=== PATIENT | female | born 1980 | race African-American/Black ===

== ENCOUNTER 2017-09-05 12:18 | Emergency (ER) | payer OTHER ==
[~2017-09-05] VITALS: Ht 162.6 cm; Wt 59.0 kg
--- NOTE | ~2017-09-05 | EKG ---
[place] [address] [facility] [place] [address] ELECTROCARDIOGRAM REPORT Name: BRIRADHABRYAN Caraballo Room #: DEP [facility]#: [id number] Admission: 09/05/17 Attend Phys: Discharge: 09/05/17 Date of : 82 Report #: [id number] THIS REPORT FOR: //name// 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
[~2017-09-05 12:18] MED LIST: ACYCLOVIR 400400 MG PO; FLAGYL500 MG PO; NAPROSYN500 MG PO; NORCO 5-325 TA1 EACH PO; NORFLEX100 MG PO; PHENERGAN 25 MG25 M1 PO; VITAFOL-OB+DHA1 EACH PO
[2017-09-05 12:44] LABS: URINE BILIRUBIN NEGATIVE (Negative); URINE BLOOD NEGATIVE (Negative); URINE CLARITY CLEAR; URINE COLOR YELLOW; URINE GLUCOSE-RANDOM* NEGATIVE (Negative); URINE KETONES NEGATIVE (Negative); URINE LEUKOCYTES-REFLEX NEGATIVE (Negative); URINE NITRITE-REFLEX NEGATIVE (Negative); URINE PROTEIN (DIPSTICK) NEGATIVE (Negative); URINE SPECIFIC GRAVITY >= 1.030 (1.005-1.035); URINE UROBILINOGEN 0.2 E.U./dl (0.2-1.0)
[2017-09-05 13:09] LABS: BASOPHILS 1.2 % (0.0-2.0); EOSINOPHILS 1.9 % (0.0-3.0); HEMATOCRIT 33.4 % (37.0-47.0); HEMOGLOBIN 10.9 gm/dL (12.0-15.0); LYMPHOCYTES 34.7 % (24.0-44.0); MCH 26.8 pg (26.0-34.0); MCHC 32.6 g/dL (28.0-37.0); MCV 82.4 fL (80.0-100.0); MONOCYTES 9.4 % (1.0-8.0); PLATELET COUNT 245 thou/uL (150-400); POLYS 52.8 % (36.0-66.0); RBC 4.06 mil/uL (4.20-5.00); RDW 16.2 % (10.5-14.5); WBC 7.5 thou/uL (4.0-11.0)
[2017-09-05 13:17] LABS: CALCIUM 8.9 mg/dL (8.5-10.1); CREATININE 0.9 mg/dL (0.6-1.0); POTASSIUM 3.3 mmol/L (3.5-5.1)
[2017-09-05 13:21] LABS: ALBUMIN 3.5 g/dL (3.4-5.0); TOTAL BILIRUBIN 0.4 mg/dL (<0.1-1.0); TOTAL PROTEIN 7.8 g/dL (6.4-8.2)
[2017-09-05] MEDS ORDERED: ZOFRAN ODT4 MG PO (13:50)
[2017-09-05] MEDS ORDERED: MOBIC15 MG PO (13:50)
[2017-09-05 14:23] VITALS: BP 102/65
== END 2017-09-05 14:22 | disposition home or self-care (01) ==
LOC: ER 12:18
PROVIDERS: Physician Assistant
DX: E87.6 Hypokalemia (principal); R07.9 Chest pain, unspecified; R10.9 Unspecified abdominal pain; R51 Headache

== ENCOUNTER 2018-02-23 16:19 | Emergency (ER) | payer OTHER ==
[~2018-02-23] VITALS: Ht 162.6 cm; Wt 59.0 kg
[~2018-02-23 16:19] MED LIST changes: +CYCLOBENZAPRINE5 MG PO; +MOBIC15 MG PO; +MOBIC7.5 MG PO; +ZOFRAN ODT4 MG PO
[2018-02-23] MEDS ORDERED: IBUPROFEN 400400 M2 PO (16:36)
[2018-02-23] MEDS ORDERED: ZOFRAN4 MG PO (16:36)
[2018-02-23] MEDS ORDERED: PENICILLIN V P500 MG PO (16:36)
[2018-02-23 16:59] VITALS: BP 113/70
== END 2018-02-23 16:58 | disposition home or self-care (01) ==
LOC: ER 16:19
DX: K08.89 Other specified disorders of teeth and supporting structures (principal); R11.2 Nausea with vomiting, unspecified; Z98.890 Other specified postprocedural states

== ENCOUNTER 2018-04-06 15:33 | Emergency (ER) | payer OTHER ==
[~2018-04-06] VITALS: Ht 162.6 cm; Wt 59.0 kg
[~2018-04-06 15:33] MED LIST changes: +IBUPROFEN 400400 M2 PO; +PENICILLIN V P500 MG PO; +ZOFRAN4 MG PO
[2018-04-06 16:26] LABS: ABSOLUTE NEUTROPHILS 3.6 thou/uL (1.4-8.2); BASOPHILS 1.3 % (0.0-2.0); EOSINOPHILS 1.6 % (0.0-3.0); HEMOGLOBIN 12.8 gm/dL (12.0-15.0); LYMPHOCYTES 38.5 % (24.0-44.0); MCHC 33.7 g/dL (28.0-37.0); MCV 83.3 fL (80.0-100.0); MONOCYTES 10.8 % (1.0-8.0); PLATELET COUNT 257 thou/uL (150-400); POLYS 47.8 % (36.0-66.0); RBC 4.56 mil/uL (4.20-5.00); RDW 15.4 % (10.5-14.5); WBC 7.5 thou/uL (4.0-11.0)
[2018-04-06 16:29] LABS: CALCIUM 9.1 mg/dL (8.5-10.1); CREATININE 0.7 mg/dL (0.6-1.0); POTASSIUM 4.1 mmol/L (3.5-5.1)
[2018-04-06 16:36] LABS: ALBUMIN 3.5 g/dL (3.4-5.0); TOTAL BILIRUBIN 0.4 mg/dL (<0.1-1.0); TOTAL PROTEIN 7.8 g/dL (6.4-8.2)
--- NOTE | 2018-04-06 16:36 | EKG ---
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
[2018-04-06 16:42] LABS: URINE BILIRUBIN NEGATIVE (Negative); URINE BLOOD NEGATIVE (Negative); URINE CLARITY CLEAR; URINE COLOR YELLOW; URINE GLUCOSE-RANDOM* NEGATIVE (Negative); URINE KETONES NEGATIVE (Negative); URINE LEUKOCYTES-REFLEX NEGATIVE (Negative); URINE NITRITE-REFLEX NEGATIVE (Negative); URINE PROTEIN (DIPSTICK) NEGATIVE (Negative); URINE SPECIFIC GRAVITY 1.015 (1.005-1.035); URINE UROBILINOGEN 0.2 E.U./dl (0.2-1.0)
[2018-04-06] MEDS ORDERED: MOBIC7.5 MG PO (17:19)
[2018-04-06] MEDS ORDERED: NORFLEX100 MG PO (17:19)
[2018-04-06] MEDS ORDERED: PHENERGAN 25 MG25 M1 PO (17:19)
[2018-04-06] MEDS ORDERED: ANTIVERT25 MG PO (18:11)
[2018-04-06 18:30] VITALS: BP 115/65
== END 2018-04-06 18:31 | disposition home or self-care (01) ==
LOC: ER 15:33
PROVIDERS: Physician Assistant
DX: E86.0 Dehydration (principal); R42 Dizziness and giddiness; M54.5 Low back pain; Z87.442 Personal history of urinary calculi; Z98.890 Other specified postprocedural states

== ENCOUNTER 2020-02-04 09:38 | Emergency (ER) | payer OTHER ==
[~2020-02-04] VITALS: Ht 162.6 cm; Wt 63.5 kg
[~2020-02-04 09:38] MED LIST changes: +ANTIVERT25 MG PO
[2020-02-04 10:14] LABS: HEMOGLOBIN 11.8 gm/dL (12.0-15.0); MCH 27.6 pg (26.0-34.0); MCHC 33.7 g/dL (28.0-37.0); MCV 81.9 fL (80.0-100.0); PLATELET COUNT 305 thou/uL (150-400); RBC 4.28 mil/uL (4.20-5.00); RDW 16.5 % (10.5-14.5); WBC 4.8 thou/uL (4.0-11.0)
[2020-02-04 10:16] LABS: CREATININE 1.1 mg/dL (0.6-1.0); POTASSIUM 4.2 mmol/L (3.5-5.1)
[2020-02-04 10:51] VITALS: BP 109/67
[2020-02-04] MEDS ORDERED: GUAIFEN-CODEINE10 ML PO (10:53)
[2020-02-04 12:14] LABS: ABSOLUTE NEUTROPHILS 2.4 thou/uL (1.4-8.2)
[2020-02-04 12:15] LABS: ANISOCYTOSIS 1+
== END 2020-02-04 11:27 | disposition home or self-care (01) ==
LOC: ER 09:38
PROVIDERS: Emergency Medicine
DX: U07.1 COVID-19 (principal); J06.9 Acute upper respiratory infection, unspecified

== ENCOUNTER 2021-02-10 14:56 | Emergency (ER) | payer OTHER ==
[~2021-02-10] VITALS: Ht 160 cm; Wt 67.1 kg
[~2021-02-10 14:56] MED LIST changes: +GUAIFEN-CODEINE10 ML PO
[2021-02-10 16:23] LABS: URINE BILIRUBIN NEGATIVE (Negative); URINE BLOOD 2+ (Negative); URINE CLARITY CLEAR; URINE COLOR YELLOW; URINE GLUCOSE-RANDOM* NEGATIVE (Negative); URINE KETONES NEGATIVE (Negative); URINE LEUKOCYTES-REFLEX NEGATIVE (Negative); URINE NITRITE-REFLEX NEGATIVE (Negative); URINE PROTEIN (DIPSTICK) NEGATIVE (Negative); URINE UROBILINOGEN 0.2 E.U./dl (0.2-1.0)
[2021-02-10 16:28] LABS: BACTERIA-REFLEX None Seen /HPF (None Seen); CRYSTALS None Seen /LPF (None Seen); SQUAMOUS 0-3 Few /LPF (0-3); URINE RBC >20 Many /HPF (NONE SEEN); URINE WBC-REFLEX None Seen /HPF (0-5)
[2021-02-10 16:41] LABS: ABSOLUTE NEUTROPHILS 6.5 thou/uL (1.4-8.2); BASOPHILS 0.9 % (0.0-2.0); EOSINOPHILS 0.8 % (0.0-3.0); HEMATOCRIT 30.8 % (37.0-47.0); HEMOGLOBIN 9.8 gm/dL (12.0-15.0); LYMPHOCYTES 17.6 % (24.0-44.0); MCH 24.8 pg (26.0-34.0); MCHC 31.9 g/dL (28.0-37.0); MONOCYTES 10.5 % (1.0-8.0); PLATELET COUNT 333 thou/uL (150-400); POLYS 70.2 % (36.0-66.0); RBC 3.95 mil/uL (4.20-5.00); RDW 16.6 % (10.5-14.5); WBC 9.2 thou/uL (4.0-11.0)
[2021-02-10 16:49] LABS: ANION GAP 9 mmol/L (7-16); BUN 9 mg/dL (7-18); CALCIUM 8.8 mg/dL (8.5-10.1); CHLORIDE 103 mmol/L (98-107); CO2 22 mmol/L (21-32); CREATININE 0.9 mg/dL (0.6-1.0); GLUCOSE 95 mg/dL (74-106); POTASSIUM 3.6 mmol/L (3.5-5.1); SODIUM 134 mmol/L (136-145)
[2021-02-10 17:04] LABS: ALBUMIN 3.5 g/dL (3.4-5.0); LIPASE 67 U/L (73-393); MAGNESIUM 1.8 mg/dL (1.8-2.4); SGOT 14 U/L (15-37); SGPT 20 U/L (14-59); TOTAL BILIRUBIN 0.3 mg/dL (0.2-1.0); TOTAL PROTEIN 7.8 g/dL (6.4-8.2)
[2021-02-10] MEDS ORDERED: ZOFRAN ODT4 MG PO (21:50)
[2021-02-10] MEDS ORDERED: NORCO5 PO (21:50)
[2021-02-10] MEDS ORDERED: PROMS25 WY RECTAL (21:50)
[2021-02-10 23:15] VITALS: BP 134/79
--- NOTE | 2021-02-11 07:17 | EKG ---
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 : 1980 Requested By: Stephanie Tan Order Number: [id number] MD: Vini Sepulveda Measurements Intervals [place] Rate: 110 P: 76 [place]: 138 QRS: 58 QRSD: 74 T: 36 QT: 315 QTc: 427 Interpretive Statements Sinus tachycardia Probable left atrial enlargement Low voltage, precordial leads Compared to ECG 04/06/2018 16:18:06 Low QRS voltage now present Sinus rhythm no longer present Electronically Signed On 02-11-2021 7:17:12 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 02/11/21 0717 1501 150 Vini Sepulveda MD, FACC /EPI
== END 2021-02-10 23:17 | disposition home or self-care (01) ==
LOC: ER 14:56
PROVIDERS: Nurse Practitioner Family
DX: K80.80 Other cholelithiasis without obstruction (principal); Z20.822 Contact with and (suspected) exposure to COVID-19; D25.9 Leiomyoma of uterus, unspecified; R10.11 Right upper quadrant pain; R07.89 Other chest pain; E86.0 Dehydration; R11.10 Vomiting, unspecified; Z98.890 Other specified postprocedural states; Z87.442 Personal history of urinary calculi; Z86.16 Personal history of COVID-19; Z79.899 Other long term (current) drug therapy